=== PATIENT | male | born 1935 | race Caucasian/White ===

== ENCOUNTER 2022-03-03 11:51 | Emergency (ER) | payer MEDICARE, BC ==
[~2022-03-03] VITALS: Ht 172.7 cm; Wt 73.5 kg
--- NOTE | 2022-03-03 11:58 | NUR ---
Patient was brought to ER by head nurse at [facility] via wheelchair. He hada minir eye surgery with general anesthesia. In [facility] it was discovered that a tooth was missing. Dr Loomis came to bedside immediately. Patient is awake, alert, oriented x3 in no distress. Denies SOB, no cough or caynosis noted. Sp02 is > 99% on RA
[2022-03-03] MEDS ORDERED: METF-440 PO (12:06)
[2022-03-03] MEDS ORDERED: PROSTATE MEDS (12:06)
--- NOTE | 2022-03-03 13:57 | NUR ---
Oxygen saturation during stay in ER has maintained above 97% the entire time. No coughing ,SOB or breathing/airway issues noted. DC and follow up instructions given and explained to patient and who state they understand all instructions
--- NOTE | 2022-03-03 14:00 | NUR ---
Patient went back to his facility/car with nurse Lopez (from [facility]) via wheelchair
== END 2022-03-03 14:01 | disposition home or self-care (01) ==
LOC: ER 11:51
DX: S03.2XXA Dislocation of tooth, initial encounter (principal); X58.XXXA Exposure to other specified factors, initial encounter; Y93.89 Activity, other specified; Y92.531 Health care provider office as the place of occurrence of the external cause; E11.9 Type 2 diabetes mellitus without complications; Z79.84 Long term (current) use of oral hypoglycemic drugs; Z95.0 Presence of cardiac pacemaker
CPT/HCPCS: 71045; A4663